=== PATIENT | male | born 2000 | race Caucasian/White ===

== ENCOUNTER 2022-06-22 20:29 | Inpatient (IN) ==
[2022-06-22 21:54] LABS: ABS Eosinophils 0.3 10^3/ul (0-0.6); ABS Lymphocytes 2.4 10^3/ul (1.0-4.8); ABS Monocytes 0.8 10^3/ul (0-0.8); Eosinophil % 3.4 %; Hematocrit 45 % (42-52); Hemoglobin 15.3 g/dL (14.0-18.0); Lymphocyte % 28.5 %; Mean Corpuscular HGB Conc 34 g/dL (31-36); Mean Corpuscular Hemoglobin 30 pg (27-31); Mean Corpuscular Volume 89 fL (80-94); Mean Platelet Volume 8.3 fL (7.4-10.4); Nucleated Red Blood Cells % 0.1; Platelet Count 251 10^3/uL (150-450); Red Blood Count 5.06 10^6 /uL (4.18-5.48); Red Cell Distribution Width 13 % (10-15); White Blood Count 8.5 10^3/uL (3.5-10.8)
[2022-06-22 22:32] LABS: ALT 23 U/L (7-52); AST 47 U/L (13-39); Acetaminophen < 15 mcg/mL; Albumin 5.1 g/dL (3.2-5.2); Albumin/Globulin Ratio 2.2 (1-3); Alcohol, S < 13 mg/dL (<13); Alkaline Phosphatase 61 U/L (35-149); Anion Gap 12 mmol/L (2-11); Blood Urea Nitrogen 21 mg/dL (6-24); CO2 Carbon Dioxide 27 mmol/L (22-32); Chloride 101 mmol/L (101-111); Globulin 2.3 g/dL (2-4); Glucose 70 mg/dL (70-100); Potassium 4.1 mmol/L (3.5-5.0); Salicylate < 2.50 mg/dL (<30); Sodium 140 mmol/L (135-145); Total Protein 7.4 g/dL (6.4-8.9); eGFR CKD-EPI 106.1 (>60)
[2022-06-22 22:33] LABS: Urine Benzodiazepine Screen None Detected (None Detect); Urine Cannabinoids Screen Presumptive Positive (None Detect); Urine Opiates Screen None Detected (None Detect)
[2022-06-22 22:45] LABS: TSH Ultra Thyroid Stim Horm 1.29 mcIU/mL (0.34-5.60)
[2022-06-23] MEDS ORDERED: chlorproMAZINE TAB 50 MG Q6H PRN AGITATION PO (04:10)
[2022-06-23] MEDS ORDERED: Al Hydrox/Mg Hydrox/Simet LIQ 30 ML UDC PO PRN (04:10)
[2022-06-23] MEDS ORDERED: Nicotine GUM 2MG FRUIT FLAVOR PO PRN (05:00)
[2022-06-23] MEDS: Vitamin THERAPEUTIC TAB PO SCH (09:42)
[2022-06-24] MEDS: Vitamin THERAPEUTIC TAB PO SCH (07:28)
[2022-06-25] MEDS: Vitamin THERAPEUTIC TAB PO SCH (09:09)
[2022-06-26] MEDS: Vitamin THERAPEUTIC TAB PO SCH (07:44)
[2022-06-27] MEDS: Vitamin THERAPEUTIC TAB PO SCH (07:53)
[2022-06-28] MEDS: Vitamin THERAPEUTIC TAB PO SCH (07:55)
[2022-06-28 08:49] LABS: HDL Cholesterol 51.4 mg/dL
[2022-06-29] MEDS: Vitamin THERAPEUTIC TAB PO SCH (07:30)
[2022-06-30] MEDS: Vitamin THERAPEUTIC TAB PO SCH (07:59)
[2022-07-01] MEDS: Vitamin THERAPEUTIC TAB PO SCH (07:15)
[2022-07-01 08:02] VITALS: BP 90/44
== END 2022-07-01 14:11 | disposition home or self-care (01) | DRG 753 ==
LOC: ED 20:29 → EDHOLD 06-23 03:30 → BSU 06-23 04:52
PROVIDERS: ADMIT Psychiatry & Neurology Addiction Psychiatry; ATTEND Psychiatry & Neurology Addiction Psychiatry